=== PATIENT | female | born 1960 | race Caucasian/White ===

== ENCOUNTER 2025-05-14 00:03 | Emergency (ER) | payer BC ==
[~2025-05-14] VITALS: Ht 154.9 cm; Wt 43.0 kg
[2025-05-14 00:05] VITALS: O2SAT 96
[2025-05-14] MEDS: ONDANSETRON HCL 4MG/2ML INJ IV ONE (01:15)
[2025-05-14] MEDS: SODIUM CHLORIDE 0.9% 1,000 ML IV ONE (01:37)
[2025-05-14 03:22] LABS: BASOPHILS % 0.6 % (0.0-2.0); EOSINOPHILS % 2.4 % (0.0-5.0); HEMATOCRIT. 38.8 % (36.0-48.0); HEMOGLOBIN. 13.0 g/dL (12.0-16.0); LYMPHOCYTES % 43.3 % (20.0-50.0); MEAN PLATELET VOLUME 8.2 fl (7.4-10.4); MONOCYTES % 9.6 % (2.0-8.0); NEUTROPHILS % 44.1 % (40.0-76.0); PLATELET 361 x1000/uL (130-400); RED BLOOD CELL COUNT 4.02 mill/uL (4.2-5.4); RED CELL DISTRIBUTION WIDTH 12.8 % (11.6-14.6)
[2025-05-14 03:28] LABS: CREATININE 0.8 mg/dL (0.6-1.0); UREA NITROGEN BLOOD 7 mg/dL (9-23)
[2025-05-14 03:29] LABS: ETHANOL BLOOD 233 mg/dL (<10)
[2025-05-14 06:57] VITALS: BP 130/64; PULSE 78; RESP 14; TEMP 36.6; O2SAT 96
== END 2025-05-14 06:58 | disposition home or self-care (01) ==
LOC: ER 00:03 → CMPBEDREQ 07:39
DX: T51.0X1A Toxic effect of ethanol, accidental (unintentional), initial encounter (principal); R41.82 Altered mental status, unspecified; R07.9 Chest pain, unspecified; X58.XXXA Exposure to other specified factors, initial encounter; Y93.89 Activity, other specified; Y92.89 Other specified places as the place of occurrence of the external cause; Y99.8 Other external cause status
CPT/HCPCS: 80048; 80320; 85025; 36415; 71045; 70450; 93005; 96360; 99291; J7030; G0480